=== PATIENT | female | born 1960 | race Caucasian/White ===

== ENCOUNTER → 2018-10-23 | Outpatient (CLI) | payer BC | LOC: CIMAGING 14:05 | PROVIDERS: ATTEND Family Medicine | DX: K59.00 Constipation, unspecified (principal); M41.85 Other forms of scoliosis, thoracolumbar region; M41.86 Other forms of scoliosis, lumbar region; M51.36 Other intervertebral disc degeneration, lumbar region | CPT/HCPCS: 74022-PO ==